=== PATIENT | female | born 1965 | race Caucasian/White ===

== ENCOUNTER 2018-05-26 00:34 | Emergency (ER) | payer BC ==
--- NOTE | 2018-05-26 01:02 | EDM.PDOC ---
ED HPI GENERAL MEDICAL PROBLEM - General Chief Complaint: General Stated Complaint: ARM PAIN Time Seen by Provider: 05/26/18 00:47 Source of Information: Reports: Patient History Limitations: Reports: No Limitations - History of Present Illness INITIAL COMMENTS - FREE TEXT/NARRATIVE: HISTORY AND PHYSICAL: History of present illness: 52-year-old female male presenting emergency department with chief complaint of fever and chills 4 days. States that she's had fever and chills starting this last weekend. Thought that it was initially hot flashes as she is going through menopause. She also developed a cough today which is productive. Has had a sore throat on and off. Also complaining of some headaches worse this weekend. Also notes that she has felt heaviness in both her arms for approximately 2 months. States they just feel heavy sometimes also like a bruise and with occasional tingling. Works in [employer] and does not do strenuos work overhead or swimming. She has not followed up with her care PCP. Denies any other focal neurologic deficits including changes in vision, weakness, paresthesias. Currently denies any chest pain, palpitations , shortness of breath, syncopal episodes, or focal neurologic deficits Review of systems: As per history of present illness and below otherwise all systems reviewed and negative. Past medical history: As per history of present illness and as reviewed below otherwise noncontributory. Surgical history: As per history of present illness and as reviewed below otherwise noncontributory. Social history: No reported history of drug or alcohol abuse. Family history: As per history of present illness and as reviewed below otherwise noncontributory. Physical exam: HEENT: Atraumatic, normocephalic, pupils reactive, negative for conjunctival pallor or scleral icterus, mucous membranes moist, throat clear, neck supple, nontender, trachea midline. Lungs: Clear to auscultation, breath sounds equal bilaterally, chest nontender. Heart: S1S2, regular, negative for clicks, rubs, or JVD. Abdomen: Soft, nondistended, nontender. Negative for masses or hepatosplenomegaly. Negative for costovertebral tenderness. Pelvis: Stable nontender. Genitourinary: Deferred. Rectal: Deferred. Extremities: Atraumatic, negative for cords or calf pain. Neurovascular unremarkable. Neuro: Awake, alert, oriented. Cranial nerves II through XII unremarkable. Cerebellum unremarkable. Motor and sensory unremarkable throughout. Exam nonfocal. Diagnostics: CBC, CMP, rapid strep, CT head, chest x-ray, EKG, hCG, lipase, troponin Therapeutics: 1 L normal saline Impression: Fever and chills Bilateral shoulder numbness Plan: CBC, CMP, rapid strep, CT head, chest x-ray, EKG, hCG, lipase, troponin were all unremarkable. Patient currently most likely has a viral syndrome. Her bilateral shoulder numbness may be secondary to cervical nerve impingement however further investigation is warranted. This was discussed with patient. She is going to follow-up with primary care and possibly have a neurology consult. CT of the head showed no significant initial findings. Patient was in agreement. Definitive disposition and diagnosis as appropriate pending reevaluation and review of above. both arms Pain Score (Numeric/FACES): 5 - Related Data Allergies Allergy/AdvReac Type Severity Reaction Status Date / Time fluconazole [From Diflucan] Allergy Hives Verified 05/26/18 01:00 Sulfa (Sulfonamide Allergy Hives Verified 05/26/18 01:00 Antibiotics) Home Meds: Home Meds buPROPion HCl [Wellbutrin SR] 1 tab PO DAILY 05/26/18 [History] Social & Family History - Tobacco Use Smoking Status *Q: Never Smoker - Recreational Drug Use Recreational Drug Use: No ED ROS GENERAL - Review of Systems Review Of Systems: ROS reveals no pertinent complaints other than HPI. ED EXAM, GENERAL - Physical Exam Exam: See Below Course - Vital Signs Last Recorded V/S: Last Vital Signs Temp 97 F 05/26/18 00:34 Pulse 66 05/26/18 00:34 Resp 18 05/26/18 00:34 BP 121/88 05/26/18 00:34 Pulse Ox 97 05/26/18 00:34 - Orders/Labs/Meds Orders: Active Orders 24 hr Category Date Time Status EKG Documentation Completion [RC] STAT Care 05/26/18 01:15 Active Chest 2V [CR] Stat Exams 05/26/18 01:15 Taken Head wo Cont [CT] Stat Exams 05/26/18 04:25 Taken AMYLASE [CHEM] Stat Lab 05/26/18 01:15 Ordered CBC WITH AUTO DIFF [HEME] Stat Lab 05/26/18 01:15 Ordered COMPREHENSIVE METABOLIC PN,CMP [CHEM] Stat Lab 05/26/18 01:15 Ordered CULTURE STREP A CONFIRMATION [RM] Stat Lab 05/26/18 02:02 Results HCG QUALITATIVE,URINE [URCHEM] Stat Lab 05/26/18 01:16 Ordered LIPASE [CHEM] Stat Lab 05/26/18 01:15 Ordered STREP SCRN A RAPID W CULT CONF [RM] Stat Lab 05/26/18 02:02 Ordered TROPONIN I [CHEM] Stat Lab 05/26/18 01:15 Ordered UA W/MICROSCOPIC [URIN] Stat Lab 05/26/18 01:16 Ordered Sodium Chloride 0.9% [Saline Flush] Med 05/26/18 01:15 Active 10 ml FLUSH ASDIRECTED PRN Sodium Chloride 0.9% [Saline Flush] Med 05/26/18 01:15 Active 2.5 ml FLUSH ASDIRECTED PRN Sodium Chloride 0.9% [Saline Flush] Med 05/26/18 01:15 Active 2.5 ml FLUSH ASDIRECTED PRN Saline Lock Insert [OM.PC] Stat Oth 05/26/18 01:15 Ordered Medication Orders Sodium Chloride (Saline Flush) 2.5 ml FLUSH ASDIRECTED PRN PRN Reason: Keep Vein Open Sodium Chloride (Saline Flush) 10 ml FLUSH ASDIRECTED PRN PRN Reason: Keep Vein Open Sodium Chloride (Saline Flush) 2.5 ml FLUSH ASDIRECTED PRN PRN Reason: Keep Vein Open Labs: Laboratory Tests 05/26/18 05/26/18 05/26/18 Range/Units 01:15 01:16 01:16 INR 0.98 Urine Color YELLOW Urine Appearance CLEAR Urine pH 6.0 (5.0-8.0) Ur Specific Brenton 1.010 (1.001-1.035) Urine Protein NEGATIVE (NEGATIVE) mg/dL Urine Glucose (UA) NEGATIVE (NEGATIVE) mg/dL Urine Ketones NEGATIVE (NEGATIVE) mg/dL Urine Occult Blood NEGATIVE (NEGATIVE) Urine Nitrite NEGATIVE (NEGATIVE) Urine Bilirubin NEGATIVE (NEGATIVE) Urine Urobilinogen 0.2 (<2.0) EU/dL Ur Leukocyte Esterase NEGATIVE (NEGATIVE) Urine RBC 0-1 (0-2/HPF) Urine WBC 0-1 (0-5/HPF) Ur Epithelial Cells OCCASIONAL (NONE-FEW) Urine Bacteria RARE (NEGATIVE) Urine HCG, Qual NEGATIVE (NEGATIVE) Meds: Medications Generic Name Dose Route Start Last Admin Trade Name Kt PRN Reason Stop Dose Admin Sodium Chloride 2.5 ml 05/26/18 01:15 Saline Flush FLUSH ASDIRECTED PRN Keep Vein Open Sodium Chloride 10 ml 05/26/18 01:15 Saline Flush FLUSH ASDIRECTED PRN Keep Vein Open Sodium Chloride 2.5 ml 05/26/18 01:15 Saline Flush FLUSH ASDIRECTED PRN Keep Vein Open Discontinued Medications Generic Name Dose Route Start Last Admin Trade Name Kt PRN Reason Stop Dose Admin Sodium Chloride 1,000 mls @ 999 mls/hr 05/26/18 01:15 05/26/18 01:53 Normal Saline IV 05/26/18 02:15 999 mls/hr BOLUS ONE Administration Sodium Chloride 1,000 mls @ 999 mls/hr 05/26/18 03:00 05/26/18 03:00 Normal Saline IV 05/26/18 04:00 999 mls/hr .Bolus ONE Administration Departure - Departure Time of Disposition: 05:58 Disposition: Home, Self-Care 01 Condition: Good Clinical Impression: Acute viral syndrome - Discharge Information Referrals: PCP,None [Primary Care Provider] - Forms: ED Department Discharge Additional Instructions: My general discharge The following information is given to patients seen in the emergency department who are being discharged to home. This information is to outline your options for follow-up care. We provide all patients seen in our emergency department with a follow-up referral. The need for follow-up, as well as the timing and circumstances, are variable depending upon the specifics of your emergency department visit. If you don't have a primary care physician on staff, we will provide you with a referral. We always advise you to contact your personal physician following an emergency department visit to inform them of the circumstance of the visit and for follow-up with them and/or the need for any referrals to a consulting specialist. The emergency department will also refer you to a specialist when appropriate. This referral assures that you have the opportunity for follow-up care with a specialist. All of these measure are taken in an effort to provide you with optimal care, which includes your follow-up. Under all circumstances we always encourage you to contact your private physician who remains a resource for coordinating your care. When calling for follow-up care, please make the office aware that this follow-up is from your recent emergency room visit. If for any reason you are refused follow-up, please contact the [facility] Emergency Department at and asked to speak to the emergency department charge nurse. [facility] [address] [place] [address] [facility] [address] [place] [id number] Please call 1 of the above numbers and follow-up with a primary care provider. Be sure to tell them that you were seen in the emergency department and they wish for you to be followed with. Return to emergency department if you have any new or worsening symptoms as discussed. - My Orders Last 24 Hours: My Active Orders 05/26/18 01:15 EKG Documentation Completion [RC] STAT Chest 2V [CR] Stat AMYLASE [CHEM] Stat CBC WITH AUTO DIFF [HEME] Stat COMPREHENSIVE METABOLIC PN,CMP [CHEM] Stat LIPASE [CHEM] Stat TROPONIN I [CHEM] Stat Sodium Chloride 0.9% [Saline Flush] 10 ml FLUSH ASDIRECTED PRN Sodium Chloride 0.9% [Saline Flush] 2.5 ml FLUSH ASDIRECTED PRN Sodium Chloride 0.9% [Saline Flush] 2.5 ml FLUSH ASDIRECTED PRN Saline Lock Insert [OM.PC] Stat 05/26/18 01:16 HCG QUALITATIVE,URINE [URCHEM] Stat UA W/MICROSCOPIC [URIN] Stat 05/26/18 02:02 CULTURE STREP A CONFIRMATION [RM] Stat STREP SCRN A RAPID W CULT CONF [RM] Stat 05/26/18 04:25 Head wo Cont [CT] Stat - Assessment/Plan Last 24 Hours: My Active Orders 05/26/18 01:15 EKG Documentation Completion [RC] STAT Chest 2V [CR] Stat AMYLASE [CHEM] Stat CBC WITH AUTO DIFF [HEME] Stat COMPREHENSIVE METABOLIC PN,CMP [CHEM] Stat LIPASE [CHEM] Stat TROPONIN I [CHEM] Stat Sodium Chloride 0.9% [Saline Flush] 10 ml FLUSH ASDIRECTED PRN Sodium Chloride 0.9% [Saline Flush] 2.5 ml FLUSH ASDIRECTED PRN Sodium Chloride 0.9% [Saline Flush] 2.5 ml FLUSH ASDIRECTED PRN Saline Lock Insert [OM.PC] Stat 05/26/18 01:16 HCG QUALITATIVE,URINE [URCHEM] Stat UA W/MICROSCOPIC [URIN] Stat 05/26/18 02:02 CULTURE STREP A CONFIRMATION [RM] Stat STREP SCRN A RAPID W CULT CONF [RM] Stat 05/26/18 04:25 Head wo Cont [CT] Stat
[2018-05-26] MEDS ORDERED: Sodium Chloride 0.9% 10 ML Syringe FLUSH PRN (01:15)
[2018-05-26] MEDS ORDERED: Sodium Chloride 0.9% 1,000 ML IV ONE ×2 (01:15→03:00)
[2018-05-26] MEDS ORDERED: Sodium Chloride 0.9% 2.5 ML Syringe FLUSH PRN ×2 (01:15)
[2018-05-26 04:58] LABS: CHLORIDE,CL 104 mmol/L (98-107); SODIUM,NA 140 mmol/L (136-145)
--- NOTE | 2018-05-26 14:42 | CT ---
EXAM DATE: 05/26/18 PATIENT'S AGE: 52 Patient: MALATHI TEMPLETON Facility: [place], [place] Site . Site : 1965 Study: CT Head [id number]/14/2018 4:37:43 AM Ordering Physician: Rosalio Leroy Final Report: INDICATION: Upper extremity numbness TECHNIQUE: CT head without contrast. COMPARISON: None FINDINGS: CSF spaces: Within normal limits for age. Brain parenchyma: The jurado-white differentiation is normal. No sign of mass, hemorrhage, or midline shift. Skull base and calvarium: The visualized paranasal sinuses and mastoid air cells demonstrate no acute or significant findings. The visualized orbits are grossly unremarkable. No skull fractures. IMPRESSION: Unremarkable noncontrast head CT. Dictated by Vikram Pierce MD @ 05/26/2018 5:47:12 AM Please note that all CT scans at this facility use dose modulation, iterative reconstruction, and/or weight-based dosing when appropriate to reduce radiation dose to as low as reasonably achievable. Dictated by: Vikram Pierce MD @ 05/26/2018 05:47:24 (Electronic Signature) Report Signed by Proxy. [facility]
--- NOTE | 2018-05-26 14:43 | CR ---
EXAM DATE: 05/26/18 PATIENT'S AGE: 52 Patient: MALATHI TEMPLETON Facility: [place], [place] Site . Site : 1965 Study: XRay Chest [id number]/14/2018 4:38:32 AM Ordering Physician: Rosalio Leroy Final Report: INDICATION: Cough. Pt came into ER with complain of arm numbness for about a month. TECHNIQUE: Chest 2 views. COMPARISON: None. FINDINGS: Cardiovascular and mediastinum: Heart size and vasculature are normal in caliber and appearance. Mediastinum is within normal limits. Lungs and pleural spaces: Lungs are clear. No sign of infiltrate or mass. No sign of pleural effusion. No pneumothorax. Bones and soft tissues: No significant findings. IMPRESSION: Unremarkable chest. Dictated by: Vikram Pierce MD @ 05/26/2018 05:37:30 (Electronic Signature) Report Signed by Proxy. [facility]
== END 2018-05-26 06:12 | disposition home or self-care (01) ==
LOC: MW.ED 00:34
DX: B34.9 Viral infection, unspecified (principal); R20.0 Anesthesia of skin
CPT/HCPCS: 36415; 70450; 71046; 80053; 81001; 81025; 82150; 83690; 84484; 85025; 85610; 87081; 87880; 93005; 96360; 96361; 99285; J7040; 99283